=== PATIENT | female | born 2000 | race Caucasian/White ===

== ENCOUNTER 2024-06-11 21:44 | Emergency (ER) | payer OTHER ==
[~2024-06-11] VITALS: Ht 162.5 cm; Wt 63.5 kg
[2024-06-11] MEDS ORDERED: ACYCLOVIR400 MG PO (21:55)
[2024-06-11] MEDS ORDERED: PREDNISONE20 M1 PO (22:09)
[2024-06-11] MEDS ORDERED: methylPREDNISolone sod succ 125 MG VIAL IM ONE (22:10)
[2024-06-11] MEDS ORDERED: Acetaminophen/Oxycodone 5 MG/325 MG TABLET PO ONE (22:15)
== END 2024-06-11 22:16 | disposition home or self-care (01) ==
LOC: ED 21:44
DX: M54.50 Low back pain, unspecified (principal); M25.511 Pain in right shoulder; M79.605 Pain in left leg; Z88.6 Allergy status to analgesic agent; Z91.013 Allergy to seafood; Z88.8 Allergy status to other drugs, medicaments and biological substances